=== PATIENT | female | born 1950 | race Caucasian/White ===

== ENCOUNTER 2021-11-24 17:04 | Emergency (ER) | payer MEDICARE, OTHER ==
[2021-11-24 20:16] LABS: BASOPHIL 0.7 % (0-2); HGB 13.3 g/dl (12.5-16.0); MCH 28.2 pg (25.0-31.0); MCHC 32.4 g/dL (32.0-36.0); MONOCYTE 9.6 % (0-12); NEUTROPHIL 41.6 % (41-80); NRBC 0; PLT 361 K/uL (150-400); RBC 4.71 M/uL (4.20-5.40); RDW 13.3 % (11.5-14.0); WBC 8.8 K/uL (4.0-10.5)
[2021-11-24 20:29] LABS: INR 0.94 (0.9-1.2); PROTHROMBIN TIME 12.3 SECONDS (11.9-13.9); PTT 25.7 SECONDS (24.9-34.6)
[2021-11-24 20:30] LABS: D-DIMER 0.42 ug/mLFEU (0.00-0.41)
[2021-11-24 20:51] LABS: ALBUMIN 3.8 g/dL (3.4-5.0); BILIRUBIN - TOTAL 0.5 mg/dL (0.2-1.0); CREATININE 0.79 mg/dL (0.51-0.95); GLOBULIN (CALCULATION) 3.4 g/dL; POTASSIUM 3.9 mmol/L (3.5-5.1); TOTAL PROTEIN 7.2 g/dL (6.4-8.2)
== END 2021-11-24 23:12 | disposition home or self-care (01) ==
LOC: FER 17:04
PROVIDERS: Internal Medicine
DX: M25.561 Pain in right knee (principal); M79.661 Pain in right lower leg; I10 Essential (primary) hypertension; J44.9 Chronic obstructive pulmonary disease, unspecified; Z88.1 Allergy status to other antibiotic agents; Z87.891 Personal history of nicotine dependence; Z88.6 Allergy status to analgesic agent
CPT/HCPCS: 36415; 80053; 85025; 85379; 85610; 85730; 93971